=== PATIENT | female | born 1955 | race Caucasian/White ===

== ENCOUNTER 2018-01-08 13:41 | Emergency (ER) | END 2018-01-08 16:16 | disposition home or self-care (01) ==

== ENCOUNTER 2018-08-18 15:50 | Emergency (ER) | payer MEDICAID ==
[~2018-08-18] VITALS: Wt 55.0 kg
[~2018-08-18 15:50] MED LIST: IBUP100O28 PO
[2018-08-18 17:12] VITALS: BP 153/67; PULSE 75; RESP 20
[2018-08-18] MEDS ORDERED: KETO5DRO71 OP (19:54)
--- NOTE | 2018-08-18 19:56 | ERD ---
ER Documentation Chief Complaint Chief Complaint L. EYE REDNESS X2 DAYS HPI 62-year-old female presenting to the ED for redness in her left eye x4 days. She denies any discharge from the eye, pain in the eye, loss of vision. Patient is not on any blood thinning medications. Patient denies any trauma and states that she still has full vision and no increase pressure in the eye. Patient denies any recent illnesses. Patient denies any medical conditions and states she is not allergic to any medications. ROS All systems reviewed and are negative except as per history of present illness. Medications Home Meds Active Scripts Ketotifen Fumarate (ZADITOR) 5 Ml Drops, 5 ML OP Q8 for 7 Days, BOTTLE Prov:SHERRY KAPOOR PA-C 08/18/18 Ibuprofen (Ibuprofen) 100 Mg/5 Ml Oral.susp, 400 MG PO Q6H PRN for PAIN AND OR ELEVATED TEMP, #4 OZ Prov:LIAT BOWERS PA-C 01/08/18 Allergies Allergies: Coded Allergies: No Known Allergy (Unverified , 08/18/18) PMhx/Soc History of Surgery: Yes (GALLBLADDER) Anesthesia Reaction: No Hx Neurological Disorder: No Hx Respiratory Disorders: No Hx Cardiac Disorders: Yes (HTN) Hx Psychiatric Problems: No Hx Miscellaneous Medical Probl: No Hx Alcohol Use: No Hx Substance Use: No Hx Tobacco Use: No Smoking Status: Never smoker FmHx Family History: No diabetes, No coronary disease, No other Physical Exam Vitals Vital Signs Date Temp Pulse Resp B/P (MAP) Pulse Ox O2 O2 Flow FiO2 Time Delivery Rate 08/18/18 98.1 75 20 153/67 100 17:12 (95) Physical Exam Const: No acute distress Head: Atraumatic Eyes: Sub-hemorrhage conjunctivitis in left eye, no hyphema, pupils are equal round reactive to light and intact ENT: Normal External Ears, Nose and Mouth. Neck: Full range of motion. No meningismus. Resp: Clear to auscultation bilaterally Cardio: Regular rate and rhythm, no murmurs A Procedures/MDM Medical decision making: Patient is a 62-year-old female well-appearing presenting to the ED for left eye redness x2 days. Patient denies any trauma to the eye. Patient states that she still has good vision and no blurriness no signs of floaters no pain or sense of pressure in the eye. Patient denies taking any anticoagulation medication or aspirin. Physical exam was unremarkable patient denies headache. Patient states that from time to time she does get itchy eyes but denies any traumatic event to the eye. At this time I have low suspicion for bacterial conjunctivitis, viral conjunctivitis, allergic conjunctivitis, corneal abrasion, corneal ulcer, retained eye foreign body, glaucoma, periorbital cellulitis, orbital cellulitis, hordeolum, dacrocystitis, globe rupture. Patient is being given a prescription for Zaditor informed that the symptoms may take up to 10 days to resolve. Patient should follow-up with her primary care provider 1 to 2 days regarding this visit. Patient was informed that if symptoms worsen or she loses vision in the eye or increased pain to return to ED immediately. Patient is in agreement to the treatment plan and all questions were answered prior to discharge Prescription for home: Zaditor Discharge: At this time, patient is stable for discharge and outpatient management. I have instructed the patient to follow-up with his\her primary care physician in 1 to 2 days. I have discussed with the patient the possibility of needing to see a specialist for further work-up and imaging studies if symptoms persist. I have instructed the patient to promptly return to the ER for any new or worsening symptoms including increased pain, fever, nausea, vomiting, weakness or LOC. The patient and\or family expressed understanding of and agreement with this plan. All questions were answered. Home care instructions were provided. Disclaimer: Inadvertent spelling and grammatical errors are likely due to EHR\dictation software use and do not reflect on the overall quality of patient care. Also, please note that the electronic time recorded on the note does not necessarily reflect the actual time of the patient encounter. Departure Diagnosis: Primary Impression: Subconjunctival hemorrhage of left eye Condition: Stable Patient Instructions: Subconjunctival Hemorrhage Referrals: COMMUNITY CLIN[facility] YOU HAVE RECEIVED A MEDICAL SCREENING EXAM AND THE RESULTS INDICATE THAT YOU DO NOT HAVE A CONDITION THAT REQUIRES URGENT TREATMENT IN THE EMERGENCY DEPARTMENT. FURTHER EVALUATION AND TREATMENT OF YOUR CONDITION CAN WAIT UNTIL YOU ARE SEEN IN YOUR DOCTORS OFFICE WITHIN THE NEXT 1-2 DAYS. IT IS YOUR RESPONSIBILITY TO MAKE AN APPOINTMENT FOR FOLOW-UP CARE. IF YOU HAVE A PRIMARY DOCTOR --you should call your primary doctor and schedule an appointment IF YOU DO NOT HAVE A PRIMARY DOCTOR YOU CAN CALL OUR PHYSICIAN REFERRAL HOTLINE AT IF YOU CAN NOT AFFORD TO SEE A PHYSICIAN YOU CAN CHOSE FROM THE FOLLOWING [facility] [address] [facility] [address] [facility] [address] [facility] [address] [facility] [address] [facility] [facility] [address] [facility]. [facility] YOU HAVE RECEIVED A MEDICAL SCREENING EXAM AND THE RESULTS INDICATE THAT YOU DO NOT HAVE A CONDITION THAT REQUIRES URGENT TREATMENT IN THE EMERGENCY DEPARTMENT. FURTHER EVALUATION AND TREATMENT OF YOUR CONDITION CAN WAIT UNTIL YOU ARE SEEN IN YOUR DOCTORS OFFICE WITHIN THE NEXT 1-2 DAYS. IT IS YOUR RESPONSIBILITY TO MAKE AN APPOINTMENT FOR FOLOW-UP CARE. IF YOU HAVE A PRIMARY DOCTOR --you should call your primary doctor and schedule and appointment IF YOU DO NOT HAVE A PRIMARY DOCTOR YOU CAN CALL OUR PHYSICIAN REFERRAL HOTLINE AT . IF YOU CAN NOT AFFORD TO SEE A PHYSICIAN YOU CAN CHOSE FROM THE FOLLOWING [facility] INSTITUTIONS: [facility] [address] [place] [address] [facility] [address] [place] [address] [facility] + [facility] [address] [place] [address] Additional Instructions: Llame al doctor MAANA y daily dinorah APRIL PARA DENTRO DE 1-2 WADE.Dgale a la secretaria que nosotros le instruimos hacer esta april.Avise o llame si alfaro condicin se empeora antes de la april. Regresa aqui si peor o no mejor. SHERRY KAPOOR PA-C Aug 18, 2018 19:56
== END 2018-08-18 20:06 | disposition home or self-care (01) ==
LOC: FTE 15:50
DX: H11.32 Conjunctival hemorrhage, left eye (principal); I10 Essential (primary) hypertension
CPT/HCPCS: 99282